=== PATIENT | male | born 1970 | race Caucasian/White ===

== ENCOUNTER 2017-12-22 06:17 | Day surgery (SDC) | payer OTHER ==
[2017-12-05 11:36] VITALS: BMI 43.9
[2017-12-22] MEDS ORDERED: ePHEDrine SULFATE 50 MG/1 ML AMPULE ONE (07:28)
[2017-12-22] MEDS ORDERED: PROPOFOL 20 ML ONE ×8 (07:29)
[2017-12-22] MEDS ORDERED: SUCCINYLCHOLINE CHLORIDE 200 MG/10 ML VIAL ONE (07:29)
[2017-12-22] MEDS ORDERED: MIDAZOLAM HCL 2 MG/2 ML SINGLE DOSE VIAL ONE ×3 (07:29→11:19)
[2017-12-22 07:34] VITALS: TEMP 98
--- NOTE | 2017-12-22 11:42 | OP ---
Operative Note - Note: Operative Date: 12/22/17 Pre-Operative Diagnosis: Left kidney lower pole stone Operation: Left ESWL Findings: same, as pre op Post-Operative Diagnosis: Same as Pre-op Surgeon: Garcia Mcmillan Anesthesia: Fractional (no intra procedure complication)
[2017-12-22 12:59] VITALS: BP 140/70; PULSE 70
--- NOTE | 2017-12-23 09:25 | OP ---
DATE OF OPERATION: 12/22/2017 PREOPERATIVE DIAGNOSIS: Left renal stones. POSTOPERATIVE DIAGNOSIS: Left renal stones. PROCEDURE: Left extracorporeal shockwave lithotripsy. ATTENDING: Garcia Starkey MD ANESTHESIA: General. OPERATION: Patient was brought in the operating room and placed in a supine position on the operating room table. Ultrasonography and fluoroscopy were performed. An 8 x 7-mm left lower pole stone was identified. Anesthesia was then administered as well as preoperative antibiotics. Extracorporeal shockwave lithotripsy was then performed; 2500 impulses of 20 joules of power were administered to the stone with excellent fragmentation of the stone noted under realtime ultrasonography and fluoroscopy. No complications were noted. The patient tolerated the procedure very well. Jeane [id number]
== END 2017-12-22 12:50 | disposition home or self-care (01) ==
LOC: JASU-SURG 06:17
PROVIDERS: ATTEND Urology
PROC: 0TF4XZZ Fragmentation in Left Kidney Pelvis, External Approach (ICD-10-PCS; principal; 2017-12-22 08:00)
DX: N20.0 Calculus of kidney (principal)